=== PATIENT | female | born 1985 | race Caucasian/White ===

== ENCOUNTER 2016-04-11 21:32 | Emergency (ER) | payer OTHER ==
[2016-04-11 21:42] VITALS: BP 100/61; PULSE 67; TEMP 97.7; BMI 23.8
--- NOTE | 2016-04-11 21:54 | PDOC ---
History of Present Illness <Tia Ivey - Last Filed: 04/11/16 22:42> - History of Present Illness Beta Amarjit Contraindications (Core Measure): Yes: Not Prescribed <Mary Hilliard Brinda - Last Filed: 04/12/16 02:20> - General Chief Complaint: Chest Pain Stated Complaint: CHEST PAIN Time Seen by Provider: 04/11/16 21:53 - History of Present Illness Initial Comments: 04/11/16 22:42 The patient is a 30 year old female, with no significant past medical history, who presents to the emergency department with intermittent chest pain since yesterday. The patient reports the pain is intermittent and localized to the left sternal region. 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 She reports not coming to the ED at the time because her symptoms resolved. She denies left arm numbness today. The patient states she has control implant in left arm. She denies shortness of breath, headache and dizziness. She denies fever, chills , nausea, vomit, diarrhea and constipation. She denies dysuria, frequency, urgency and hematuria. Allergies: NKDA Past surgical history: x2 Social history: Denies toxic habits PCP - Dr. Combs (Tia Ivey) Past History <Tia Ivey - Last Filed: 04/11/16 22:42> - Past Medical History Anemia: No Asthma: No Cancer: No Cardiac Disorders: No Diabetes: No HTN: No Suicide Attempt (Hx): No Seizures: No Thyroid Disease: No - Immunization History Td Vaccination: Yes TDAP Vaccination: Yes Immunization Up to Date: Yes - Psycho/Social/Smoking Cessation Hx Anxiety: No Suicidal Ideation: No Smoking Status: No Smoking History: Never smoked Years of Tobacco Use: 0 Have you smoked in the past 12 months: No Number of Cigarettes Smoked Daily: 0 Cigars Per Day: 0 Hx Alcohol Use: No Drug/Substance Use Hx: No Substance Use Type: None Hx Substance Use Treatment: No <Mary Hilliard Brinda - Last Filed: 04/12/16 02:20> - Past Medical History Allergies/Adverse Reactions: Allergies Allergy/AdvReac Type Severity Reaction Status Date / Time No Known Allergies Allergy Verified 04/11/16 21:38 Home Medications: Ambulatory Orders NK [No Known Home Medication] 04/11/16 Review of Systems - Review of Systems Able to Perform ROS?: Yes <Tia Ivey - Last Filed: 04/11/16 22:42> <Mary Hilliard - Last Filed: 04/12/16 02:20> - Review of Systems Comments:: 04/11/16 22:43 CONSTITUTIONAL: Absent: fever, chills, diaphoresis, generalized weakness, malaise, loss of appetite HEENT: Absent: rhinorrhea, nasal congestion, throat pain, throat swelling, difficulty swallowing, mouth swelling, ear pain, eye pain, visual Changes CARDIOVASCULAR: (+) chest pain, Absent: syncope, palpitations, irregular heart rate, lightheadedness, peripheral edema RESPIRATORY: Absent: cough, shortness of breath, dyspnea with exertion, orthopnea, wheezing, stridor, hemoptysis GASTROINTESTINAL: Absent: abdominal pain, abdominal distension, nausea, vomiting, diarrhea, constipation, melena, hematochezia GENITOURINARY: Absent: dysuria, frequency, urgency, hesitancy, hematuria, flank pain, genital pain MUSCULOSKELETAL: Absent: myalgia, arthralgia, joint swelling SKIN: Absent: rash, itching, pallor HEMATOLOGIC/IMMUNOLOGIC: Absent: easy bleeding, easy bruising, lymphadenopathy, frequent infections ENDOCRINE: Absent: unexplained weight gain, unexplained weight loss, heat intolerance, cold intolerance NEUROLOGIC: Absent: headache, focal weakness or paresthesias, dizziness, unsteady gait, seizure, mental status changes, bladder or bowel incontinence PSYCHIATRIC: Absent: anxiety, depression, suicidal or homicidal ideation, hallucinations. (Tia Ivey) *Physical Exam <Tia Ivey - Last Filed: 04/11/16 22:42> <Mary Hilliard - Last Filed: 04/12/16 02:20> - Vital Signs Last Vital Signs Temp Pulse Resp BP Pulse Ox 97.7 F 67 18 100/61 100 04/11/16 21:39 04/11/16 21:39 04/11/16 21:39 04/11/16 21:39 04/11/16 21:39 - Physical Exam Comments: 04/11/16 22:43 GENERAL: Well developed, well nourished. Awake and alert. No acute distress. HEENT: Normocephalic, atraumatic. PERRLA, EOMI. No conjunctival pallor. Sclera are non- icteric. Moist mucous membranes. Oropharynx is clear. NECK: Supple. Full ROM. No JVD. Carotid pulses 2+ and symmetric, without bruits. No thyromegaly. No lymphadenopathy. CARDIOVASCULAR: Regular rate and rhythm. No murmurs, rubs, or gallops. Distal pulses are 2+ and symmetric. PULMONARY: No evidence of respiratory distress. Lungs clear to auscultation bilaterally. No wheezing, rales or rhonchi. ABDOMINAL: Soft. Non-tender. Non-distended. No rebound or guarding. No organomegaly. Normoactive bowel sounds. MUSCULOSKELETAL Normal range of motion at all joints. No bony deformities or tenderness. No CVA tenderness. EXTREMITIES: No cyanosis. No clubbing. No edema. No calf tenderness. SKIN: Warm and dry. Normal capillary refill. No rashes. No jaundice. NEUROLOGICAL: Alert, awake, appropriate. Cranial nerves 2-12 intact. Normoreflexic in the upper and lower extremities. Normal speech. Toes are down-going bilaterally. Gait is normal without ataxia. PSYCHIATRIC: Cooperative. Good eye contact. Appropriate mood and affect. (Tia Ivey) ED Treatment Course - LABORATORY CBC & Chemistry Diagram: 04/11/16 22:33 04/11/16 22:33 <Tia Ivey - Last Filed: 04/11/16 22:42> - LABORATORY CBC & Chemistry Diagram: 04/11/16 22:33 04/11/16 22:33 <Mary Hilliard - Last Filed: 04/12/16 02:20> - ADDITIONAL ORDERS Additional order review: Laboratory Results 04/11/16 04/11/16 04/11/16 23:38 22:33 22:33 Sodium 143 Potassium 3.4 L Chloride 107 Carbon Dioxide 31 Anion Gap 5 L BUN 8 Creatinine 0.7 Creat Clearance w eGFR > 60 Random Glucose 89 Calcium 8.3 L Total Bilirubin 0.2 D AST 12 L ALT 13 Alkaline Phosphatase 48 Creatine Kinase 76 Troponin I < 0.02 Total Protein 7.5 Albumin 3.7 Urine HCG, Qual Negative 04/11/16 22:33 RBC 4.30 MCV 96.0 MCHC 33.3 RDW 13.7 MPV 9.1 Medical Decision Making <Tia Ivey - Last Filed: 04/11/16 22:42> <Mary Hilliard - Last Filed: 04/12/16 02:20> - Medical Decision Making 04/12/16 00:23 30 yo female who denies any significant PMH p/w palpable chest pain and states that she had experienced some left arm numbness earlier -ekg sinus erin @ 57 ,no change from prior ekg fist trop neg -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
[2016-04-11 22:43] LABS: MCHC 33.3 g/dl (32.0-36.0); MEAN PLT VOLUME 9.1 fl (7.5-11.1); PLATELET COUNT 230 K/MM3 (134-434); RDW 13.7 % (11.6-15.6); WHITE BLOOD COUNT 5.2 K/mm3 (4.0-10.0)
[2016-04-11 23:05] LABS: ALBUMIN 3.7 g/dl (3.4-5.0); ANION GAP 5 (8-16); BILIRUBIN,TOTAL 0.2 mg/dL (0.2-1.0); CALCIUM 8.3 mg/dL (8.5-10.1); CO2 31 mmol/L (21-32); CREATININE 0.7 mg/dL (0.55-1.02); GLUCOSE,RANDOM 89 mg/dL (74-106); SGOT/AST 12 U/L (15-37); SGPT/ALT 13 U/L (12-78); TOT PROT 7.5 g/dl (6.4-8.2)
[2016-04-11 23:06] LABS: ALK PHOS 48 U/L (45-117)
[2016-04-11 23:08] LABS: TROPONIN I < 0.02 ng/ml (0.00-0.05)
[2016-04-11] MEDS ORDERED: ASPIRIN 81 MG CHEWABLE TABLETS PO ONE (23:12)
--- NOTE | 2016-04-12 13:17 | EKG ---
Test Reason : Blood Pressure : / mmHG Vent. Rate : 056 BPM Atrial Rate : 056 BPM P-R Int : 136 ms QRS Dur : 084 ms QT Int : 410 ms P-R-T Axes : 052 076 069 degrees QTc Int : 395 ms SINUS BRADYCARDIA WITH MARKED SINUS ARRHYTHMIA OTHERWISE NORMAL ECG WHEN COMPARED WITH ECG OF 31-MAR-2014 21:53, QUESTIONABLE CHANGE IN QRS AXIS T WAVE INVERSION NO LONGER EVIDENT IN INFERIOR LEADS Confirmed by HAETHER KING, ILEANA ([id number]) on 04/12/2016 1:17:04 PM Referred By: Confirmed By:ILEANA ROMERO MD
== END 2016-04-12 01:12 | disposition left against medical advice (07) ==
LOC: JER 21:32
DX: R07.89 Other chest pain (principal)
CPT/HCPCS: 36415; 80053; 82550; 84484; 84703; 85027; 93005; 93010; 99282-25

== ENCOUNTER 2016-07-07 22:23 | Emergency (ER) | payer OTHER ==
[2016-07-07 22:41] VITALS: BP 106/73; PULSE 57; TEMP 98; BMI 22.6
--- NOTE | 2016-07-08 17:29 | EKG ---
Test Reason : Blood Pressure : / mmHG Vent. Rate : 058 BPM Atrial Rate : 058 BPM P-R Int : 134 ms QRS Dur : 080 ms QT Int : 410 ms P-R-T Axes : 054 072 068 degrees QTc Int : 402 ms SINUS BRADYCARDIA OTHERWISE NORMAL ECG WHEN COMPARED WITH ECG OF 11-APR-2016 22:36, NO SIGNIFICANT CHANGE WAS FOUND Confirmed by MAISHA JUAREZ MD ([id number]) on 07/08/2016 5:28:56 PM Referred By: Confirmed By:MAISHA JUAREZ MD
== END 2016-07-08 00:15 | disposition left against medical advice (07) ==
LOC: JER 22:23
DX: Z53.21 Procedure and treatment not carried out due to patient leaving prior to being seen by health care provider (principal)
CPT/HCPCS: 93005; 93010; 99281-25

== ENCOUNTER 2019-03-13 18:23 | Emergency (ER) | payer OTHER ==
[2019-03-13 18:26] VITALS: TEMP 98; BMI 23.8
--- NOTE | 2019-03-13 18:59 | PDOC ---
History of Present Illness - General Chief Complaint: Lightheaded Stated Complaint: DIZZINESS Time Seen by Provider: 03/13/19 18:39 History Source: Patient Exam Limitations: No Limitations - History of Present Illness Initial Comments: 03/13/19 18:59 33-year-old female with presents presents the ED with episodic dizziness. 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 Patient states pulled over and symptoms resolved. Patient states was able to complete the rest of her day and then at home her symptoms returned again including difficulty breathing. Patient denies smoking history, recent travel, leg pain, recent travel, recent surgery or use of exogenous estrogen. Patient believes it is a panic attack since she has been feeling more anxious lately over the past few months Timing/Duration: intermittent, resolved prior to arrival Severity: mild, moderate Associated Symptoms: reports: shortness of breath, other (Dizziness) Past History - Travel Traveled outside of the country in the last 30 days: No Close contact w/someone who was outside of country & ill: No - Past Medical History Allergies/Adverse Reactions: Allergies Allergy/AdvReac Type Severity Reaction Status Date / Time No Known Allergies Allergy Verified 03/13/19 18:27 Home Medications: Ambulatory Orders NK [No Known Home Medication] 04/11/16 Anemia: No Asthma: No Cancer: No Cardiac Disorders: No COPD: No Diabetes: No HTN: No Seizures: No Thyroid Disease: No - Immunization History Td Vaccination: Yes TDAP Vaccination: Yes Immunization Up to Date: Yes - Psycho Social/Smoking Cessation Hx Smoking Status: No Smoking History: Never smoked Years of Tobacco Use: 0 Have you smoked in the past 12 months: No Number of Cigarettes Smoked Daily: 0 Cigars Per Day: 0 Hx Alcohol Use: No Drug/Substance Use Hx: No Substance Use Type: None Hx Substance Use Treatment: No Patient Lives Alone: No Lives with/in: spouse/SO Review of Systems - Review of Systems Able to Perform ROS?: Yes Constitutional: No: Symptoms Reported HEENTM: No: Symptoms Reported Respiratory: Yes: Shortness of Breath Cardiac (ROS): Yes: Lightheadedness ABD/GI: No: Symptoms Reported : No: Symptoms Reported Musculoskeletal: No: Symptoms Reported Integumentary: No: Symptoms Reported Neurological: No: Symptoms reported Endocrine: No: Symptoms Reported *Physical Exam - Vital Signs Last Vital Signs Temp Pulse Resp BP Pulse Ox 98 F 82 18 117/75 100 03/13/19 18:24 03/13/19 18:24 03/13/19 18:24 03/13/19 18:24 03/13/19 18:24 - Physical Exam General Appearance: Yes: Nourished, Appropriately Dressed. No: Apparent Distress HEENT: negative: Pale Conjunctivae Neck: positive: Normal Thyroid, Supple Respiratory/Chest: positive: Chest Tender, Lungs Clear, Normal Breath Sounds. negative: Respiratory Distress, Accessory Muscle Use Cardiovascular: positive: Regular Rhythm, Regular Rate. negative: Murmur Gastrointestinal/Abdominal: positive: Soft. negative: Tenderness Integumentary: positive: Normal Color, Warm, Moist Neurologic: positive: Normal Mood/Affect (Appropriate and calm), Motor Strength 5/5 (Ambulatory) Heart Score/ECG Review - ECG Intrepretation Rhythm: Regular Rhythm (Normal sinus bradycardia rate 54.) Medical Decision Making - Medical Decision Making 03/13/19 19:03 Chief complaint: Episodic dizziness associated shortness of breath and feeling anxious x months. No PE risk factors Exam: No reproducible chest pain lungs clear to auscultation EKG normal sinus rhythm. Not mildly orthostatic plan: BGM will be added 03/13/19 19:23 Patient is BGM within normal limits. Patient recommended to eat small frequent meals throughout the day drinking plenty of fluids patient also to follow-up with her PCP. Discharge - Discharge Information Problems reviewed: Yes Clinical Impression/Diagnosis: Dizziness Condition: Improved Disposition: HOME - Follow up/Referral Referrals: Lolly Bergeron MD [Primary Care Provider] - - Patient Discharge Instructions Patient Printed Discharge Instructions: DI for Dizziness-Nonvertigo Additional Instructions: Drink plenty of fluids as your blood pressure and pulse were slightly different when standing showing signs of possible volume depletion follow-up with your PCP for further management - Post Discharge Activity
[2019-03-13 19:02] VITALS: BP 108/72; PULSE 63
--- NOTE | 2019-03-14 11:34 | EKG ---
Test Reason : Blood Pressure : / mmHG Vent. Rate : 054 BPM Atrial Rate : 054 BPM P-R Int : 138 ms QRS Dur : 084 ms QT Int : 398 ms P-R-T Axes : 046 069 061 degrees QTc Int : 377 ms SINUS BRADYCARDIA WITH SINUS ARRHYTHMIA OTHERWISE NORMAL ECG WHEN COMPARED WITH ECG OF 07-JUL-2016 22:33, NO SIGNIFICANT CHANGE WAS FOUND Confirmed by JEFE FRANKLIN MD ([id number]) on 03/14/2019 11:34:27 AM Referred By: Confirmed By:JEFE FRANKLIN MD
== END 2019-03-13 19:36 | disposition home or self-care (01) ==
LOC: JERFT 18:23
DX: R42 Dizziness and giddiness (principal)
CPT/HCPCS: 82962; 93005; 93010; 99282-25

== ENCOUNTER 2020-02-06 16:12 | Emergency (ER) | payer OTHER ==
[2020-02-06 16:28] VITALS: BP 104/58; PULSE 69; BMI 32.9
[2020-02-06 17:56] LABS: URINE APPEARANCE CLEAR; URINE BILIRUBIN NEGATIVE (NEGATIVE); URINE COLOR YELLOW; URINE GLUCOSE (UA) NEGATIVE (NEGATIVE); URINE KETONE NEGATIVE (NEGATIVE); URINE LEUK ESTERASE NEGATIVE (NEGATIVE); URINE NITRITE NEGATIVE (NEGATIVE); URINE PROTEIN NEGATIVE (NEGATIVE)
[2020-02-06 17:57] LABS: HCG,QUALITATIVE URINE Negative
== END 2020-02-06 18:34 | disposition home or self-care (01) ==
LOC: JERFT 16:12
DX: S96.912A Strain of unspecified muscle and tendon at ankle and foot level, left foot, initial encounter (principal); M54.6 Pain in thoracic spine
CPT/HCPCS: 73610-TC-LT-FY; 73630-TC-LT; 81003; 84703; 87086; 99283-25

== ENCOUNTER 2021-12-23 11:39 | Emergency (ER) | payer OTHER ==
[2021-12-23 11:45] VITALS: BP 127/63; PULSE 90; RESP 18; TEMP 98.7; BMI 21.2
[2021-12-23] MEDS ORDERED: ACETAMINOPHEN 500 MG TABLET (FP) PO ONE (12:56)
[2021-12-23] MEDS ORDERED: IBUPROFEN 600 MG TABLET (FP) PO ONE (12:56)
[2021-12-23] MEDS ORDERED: predniSONE 20 MG TABLET (UD) PO ONE (12:56)
== END 2021-12-23 15:23 | disposition home or self-care (01) ==
LOC: JER 11:39
DX: U07.1 COVID-19 (principal)
CPT/HCPCS: 0241U-QW; 71046-TC-FY; 99284-25

== ENCOUNTER 2022-06-30 16:38 | Emergency (ER) | payer OTHER ==
[2022-06-30 16:46] VITALS: BP 105/68; PULSE 66; RESP 18; TEMP 99; BMI 24.7
[2022-06-30] MEDS ORDERED: IBUPROFEN 600 MG TABLET (FP) PO ONE ×2 (18:49→19:10)
[2022-06-30] MEDS ORDERED: CYCLOBENZAPRINE HCL 10 MG TABLET (FP) PO ONE (18:49)
[2022-06-30 18:53] LABS: EOS % 1.1 % (0-4.5); HEMATOCRIT 40.7 % (32.4-45.2); HEMOGLOBIN 14.2 GM/dL (10.7-15.3); LYMPH % 56.8 % (8-40); MCH 33.6 pg (25.7-33.7); MCHC 34.9 g/dl (32.0-36.0); MEAN CELL VOLUME 96.3 fl (80-96); MEAN PLT VOLUME 8.5 fl (7.5-11.1); NEUT % 31.1 % (42.8-82.8); PLATELET COUNT 260 10^3/uL (134-434); RBC 4.23 M/mm3 (3.60-5.2)
[2022-06-30 19:03] LABS: BLOOD UREA NITROGEN 9.2 mg/dL (7-18); CALCIUM 8.6 mg/dL (8.5-10.1)
[2022-06-30 19:06] LABS: CREATININE 0.6 mg/dL (0.55-1.3)
[2022-06-30] MEDS ORDERED: CYCLOBENZAPRINE HCL 10 MG TABLET (FP) ONE (19:10)
== END 2022-06-30 20:17 | disposition home or self-care (01) ==
LOC: JER 16:38
DX: R07.89 Other chest pain (principal); M79.10 Myalgia, unspecified site; R20.2 Paresthesia of skin
CPT/HCPCS: 36415; 71046-TC-FY; 80048; 84484; 84703; 85025; 93005; 93010; 99285-25